=== PATIENT | male | born 1980 | race Caucasian/White ===

== ENCOUNTER 2017-05-22 13:26 | Emergency (ER) | payer BC, OTHER ==
[~2017-05-22] VITALS: Ht 185.4 cm; Wt 106.1 kg
[2017-05-22] MEDS ORDERED: SODIUM CHLORIDE FLUSH 10ML SYR IVF ONE (14:00)
[2017-05-22] MEDS ORDERED: ASPIRIN 81 MG TABLET CHEW PO ONE (14:00)
[2017-05-22 14:21] LABS: HEMATOCRIT 47.1 % (39.2-51.8); HEMOGLOBIN 16.3 g/dL (13.7-18.0); WHITE BLOOD COUNT 6.1 x10^3/uL (3.4-10)
[2017-05-22] MEDS ORDERED: ASPIRIN 81 MG TABLET CHEW ONE (14:24)
[2017-05-22 14:28] LABS: ASPARTATE AMINO TRANSFERASE 17 U/L (15-37); BLOOD UREA NITROGEN 15 mg/dL (7-18)
[2017-05-22 14:29] LABS: IS PT STATUS REG ER OR PRE ER? YES
[2017-05-22 16:19] VITALS: BP 136/76
== END 2017-05-22 16:24 | disposition home or self-care (01) ==
LOC: ED 16:18
DX: R07.89 Other chest pain (principal); I10 Essential (primary) hypertension; Z79.82 Long term (current) use of aspirin
CPT/HCPCS: 36415; 71010; 74020; 80053; 81003; 83880; 84484; 85025; 85379; 93005; 99285